=== PATIENT | male | born 1995 | race Caucasian/White ===

== ENCOUNTER 2019-09-26 16:03 | Emergency (ER) | payer MEDICAID ==
[~2019-09-26] VITALS: Ht 182.9 cm; Wt 124.3 kg
[~2019-09-26 16:03] MED LIST: ARIP1TAB5 PO; BENZ1TAB2 PO; BUSP15TA60 PO; ESCI20TA51 PO
[2019-09-26] MEDS ORDERED: ASPirin 81 mg TAB PO ONE (17:00)
[2019-09-26 17:04] LABS: Basophils # (auto) 0.1 uL; Basophils % (auto) 0.8 % (0.0-2.0); Eosinophils # (auto) 0.1 uL; Hematocrit 48.7 % (41.0-53.0); Hemoglobin 16.5 g/dL (13.5-17.5); Lymphocytes # (auto) 1.6 uL; Lymphocytes % (auto) 17.5 % (10.0-50.0); Mean Corpuscular Hemoglobin 30.2 pg (28.0-32.0); Mean Corpuscular Hgb Conc. 33.9 g/dL (32.0-36.0); Mean Corpuscular Volume 89.1 fL (80.0-100.0); Monocytes # (auto) 0.5 uL; Monocytes % (auto) 5.3 % (0.0-12.0); Neutrophils # (auto) 6.9 uL; Neutrophils % (auto) 75.4 % (37.0-80.0); Platelet Count (auto) 301 10^3/uL (140-450); Red Blood Cells 5.47 10^6/uL (4.5-5.90); Red Cell Distribution Width 13.1 % (11.8-14.3); White Blood Cell 9.2 10^3/uL (4.4-10.8)
[2019-09-26 17:20] LABS: Albumin 4.4 g/dL (3.4-5.0); Anion Gap 3 (5-15); Blood Urea Nitrogen 13 mg/dL (7-18); Calcium 9.2 mg/dL (8.5-10.1); Carbon Dioxide 29 mmol/L (21-32); Chloride 107 mmol/L (98-107); Glucose 85 mg/dL (74-106); Potassium 3.8 mmol/L (3.5-5.1); Sodium 139 mmol/L (136-145)
[2019-09-26 17:25] LABS: Alanine Aminotransferase 103 U/L (16-61); Alkaline Phosphatase 68 U/L (45-117); Aspartate Aminotransferase 35 U/L (15-37); BUN/Creatinine Ratio 11.3; GFR African American 102 mL/min; GFR Non-African American 85 mL/min; Total Protein 8.7 g/dL (6.4-8.2)
[2019-09-26 18:43] VITALS: BP 125/76
== END 2019-09-26 18:52 | disposition home or self-care (01) ==
LOC: ER 16:03
DX: R07.89 Other chest pain (principal); F41.9 Anxiety disorder, unspecified; F31.9 Bipolar disorder, unspecified; J45.909 Unspecified asthma, uncomplicated; F12.10 Cannabis abuse, uncomplicated; Z90.49 Acquired absence of other specified parts of digestive tract; Z88.0 Allergy status to penicillin; Z88.1 Allergy status to other antibiotic agents; Z88.2 Allergy status to sulfonamides
CPT/HCPCS: 36415; 71046; 80053; 84484; 85025; 93005

== ENCOUNTER 2025-07-29 06:07 | Emergency (ER) | payer MEDICAID ==
[~2025-07-29] VITALS: Ht 180.3 cm; Wt 115.6 kg
[~2025-07-29 06:07] MED LIST changes: +ARIP10TA8 PO; -ARIP1TAB5 PO; -BENZ1TAB2 PO; +BENZ1TAB6 PO; +ESCI1TAB37 PO; -ESCI20TA51 PO
[2025-07-29 06:08] VITALS: BP 151/88; PULSE 115; RESP 16; TEMP 97.8; O2SAT 95
[2025-07-29] MEDS ORDERED: LOPERAMIDE HCL 2 MG CAP/TAB PO ONE (06:45)
[2025-07-29] MEDS ORDERED: SODIUM CHLORIDE 0.9% 1,000 ML IV ONE (06:45)
[2025-07-29] MEDS ORDERED: FAMOTIDINE (10MG/ML) 2ML VL IV ONE (06:45)
[2025-07-29] MEDS ORDERED: ONDANSETRON HCL 4 MG/2 ML VIAL IV ONE (06:45)
[2025-07-29] MEDS ORDERED: KETOROLAC TROMETH 30 MG/ML 1ML VIAL IV ONE (06:45)
--- NOTE | 2025-07-29 06:45 | ED.PDOC ---
History of Present Illness HPI Comments 30-year-old male presents to the ER with prior medical history of anxiety, asthma, depression: Surgical history of cholecystectomy and the chief complaint of pelvic pain. Patient reports on having had diarrhea for two days associated with blood while wiping , dysuria and pelvic pain. Patient states on having had similar symptoms in the past still has no known cause. Denies any other symptoms at this time. Denies chills, fever, N/V/D, SOB, CP. No other associated symptoms, modifiers, recent injuries or sick contacts present at this time. Chief Complaint: Pelvic Pain Time Seen by MD: 06:35 Primary Care Provider: NONE Reviewed Notes: Nurses Notes, Medications, Allergies Allergies: Coded Allergies: Erythromycin (Verified Allergy, Mild, 10/19/10) Penicillins (Unverified Allergy, Mild, 04/19/15) Sulfisoxazole (Verified Allergy, Mild, 10/19/10) Home Meds Reported Medications Benztropine Mesylate (Benztropine Mesylate) 1 Mg Tab, 1 MG PO Q12HR, MG 04/17/15 Buspirone Hcl (Buspirone Hcl) 15 Mg Tab, 30 MG PO HS for 30 Days 04/17/15 [Escitalopram Ox20 Mg] (ESCITALOPRAM OXALATE) 20 MG TAB No Conflict Check, 20 MG PO DAILY 03/15/13 Aripiprazole (Abilify) 10 Mg Tab, 20 PO DAILY 05/30/12 Information Source: Patient Mode of Arrival: Ambulatory Severity: Moderate Timing: Hours Duration: Since onset, Hours Prehospital treatment: None Past Medical History PAST MEDICAL HISTORY: Anxiety, Asthma, Depression Surgical History: Cholecystectomy Family History Family History: Reviewed,noncontributory to illness, Unknown Social History Smoker: Non-Smoker Alcohol: Denies ETOH Use Drugs: Marijuana Lives In: Home Constitutional: denies: chills, diaphoresis, fatigue, fever, malaise, sweats, weakness, others EENTM: denies: blurred vision, double vision, ear bleeding, ear discharge, ear drainage, ear pain, ear ringing, eye pain, eye redness, hearing loss, mouth pain, mouth swelling, nasal discharge, nose bleeding, nose congestion, nose pain, photophobia, tearing, throat pain, throat swelling, voice changes, others Respiratory: denies: cough, hemoptysis, orthopnea, SOB at rest, shortness of breath, SOB with excertion, stridor, wheezing, others Cardiovascular: denies: chest pain, dizzy spells, diaphoresis, Dyspnea on exertion, edema, irregular heart beat, left arm pain, lightheadedness, palpitations, PND, syncope, others Gastrointestinal: reports: diarrhea; denies: abdomen distended, abdominal pain, blood streaked bowels, constipated, dysphagia, difficulty swallowing, hematemesis, melena, nausea, poor appetite, poor fluid intake, rectal bleeding, rectal pain, vomiting, others Genitourinary: reports: dysuria, others (Pelvic pain); denies: burning, flank pain, frequency, hematuria, incontinence, penile discharge, penile sore, pain, testicle pain, testicle swelling, urgency Neurological: denies: dizziness, fainting, headache, left sided numbness, left sided weakness, numbness, paresthesia, pre-existing deficit, right sided numbness, right sided weakness, seizure, speech problems, tingling, tremors, weakness, others Musculoskeletal: denies: back pain, gout, joint pain, joint swelling, muscle pain, muscle stiffness, neck pain, others Integumetry: denies: bruises, change in color, change in hair/nails, dryness, laceration, lesions, lumps, rash, wounds, others Allergic/Immunocompromised: denies: Difficulty Healing, Frequent Infections, Hives, Itching, others Hematologic/Lymphatic: denies: anemia, blood clots, easy bleeding, easy bruising, swollen glands, others Endocrine: denies: excessive hunger, excessive sweating, excessive thirst, excessive urination, flushing, intolerance to cold, intolerance to heat, unexplained weight gain, unexplained weight loss, others Psychiatric: denies: anxiety, bipolar disorder, depression, hopeless, panic disorder, schizophrenia, sleepless, suicidal, others All Other Systems: Reviewed and Negative Physical Exam Exam Comments Appears uncomfortable General Appearance: No Apparent Distress, Normal HEENT: Normal ENT Inspection, Pharynx Normal, TMs Normal Neck: Full Range of Motion, Non-Tender, Normal, Normal Inspection Respiratory: Chest Non-Tender, Lungs Clear, No Accessory Muscle Use, No Respiratory Distress, Normal Breath Sounds Cardiovascular: No Edema, No JVD, No Murmur, No Gallop, Normal Peripheral Pulses, Regular Rate/Rhythm Breast Exam: Deferred Gastrointestinal: No Organomegaly, Non Tender, No Pulsatile Mass, Normal Bowel Sounds, Soft Genitalia: Deferred Pelvic: Deferred Rectal: Deferred Extremities: No calf tenderness, Normal capillary refill, Normal inspection, Normal range of motion, Non-tender, No pedal edema Musculoskeletal : Apperance: Normal Neurologic: Alert, laboratory apparatus glass grinder II-XII nml as Tested, No Motor Deficits, Normal Affect, Normal Mood, No Sensory Deficits Cerebellar Function: Normal Reflexes: Normal Skin: Dry, Normal Color, Warm Lymphatic: No Adenopathy Was a procedure done? Was a procedure done?: No Differential Dx Considerations may include: Colitis, enteritis, GI bleed X-Ray, Labs, Meds, VS Vital Signs Date Time Temp Pulse Resp B/P (MAP) Pulse Ox O2 Delivery O2 Flow Rate FiO2 07/29/25 06:08 97.8 115 16 151/88 (109) 95 97.8 07/29/25 06:08 97.8 115 16 151/88 95 97.8 Time of 1ST Reevaluation: 07:05 Reevaluation 1ST: Unchanged Patient Education/Counseling: Diagnosis, Treatment, Prognosis Family Education/Counseling: No Family Present SEPSIS Sepsis Screen Date sepsis recognized/suspect: Jul 29, 2025 Time Sepsis recognized/suspect: 0636 Recent Procedure: No On Antibiotic Therapy: No Respiratory Rate >20: No Heart Rate >90: Yes Temp<36 C (96.8 F) or >38.3 C: No SBP <90 or MAP <65 mmHG: No New Acute Mental Status Change: No Is the patient on CPAP, BIPAP,: No Vital Signs Date Time Temp Pulse Resp B/P (MAP) Pulse Ox O2 Delivery O2 Flow Rate FiO2 07/29/25 06:08 97.8 115 16 151/88 (109) 95 97.8 07/29/25 06:08 97.8 115 16 151/88 95 97.8 Departure 1 Departure Time of Disposition: 06:51 (Patient with bright red blood per rectum concern for GI bleed however patient eloped prior to workup completion) Impression: Primary Impression: Bright red blood per rectum Disposition: 07 LEFT AWOL/ELOPED Condition: Serious Critical Care Note Critical Care Time?: No Stability Stability form required: No I personally scribed for CHRISTOPHER LEA MD ([email or web address]) on 07/29/25 at 06:45. Electronically submitted by Eduardo Calero ([email or web address]). CHRISTOPHER LEA MD Jul 29, 2025 06:45
== END 2025-07-29 07:52 | disposition left against medical advice (07) ==
LOC: ER 06:07
DX: K62.5 Hemorrhage of anus and rectum (principal); Z88.2 Allergy status to sulfonamides; Z90.49 Acquired absence of other specified parts of digestive tract; Z88.1 Allergy status to other antibiotic agents; Z88.0 Allergy status to penicillin; Z79.899 Other long term (current) drug therapy